=== PATIENT | male | born 1990 | race African-American/Black ===

== ENCOUNTER 2017-09-27 08:16 | Emergency (ER) | payer MEDICAID ==
[~2017-09-27] VITALS: Ht 160 cm; Wt 99.8 kg
[2017-09-27] MEDS ORDERED: ADVAIR 100-501 EACH INH (08:28)
[2017-09-27] MEDS ORDERED: VENTOLIN HFA18 GM INH ×2 (08:28→09:11)
[2017-09-27] MEDS ORDERED: SINGULAIR4 MG PO (08:28)
[2017-09-27] MEDS ORDERED: METHYLPREDNISOLO4 M1 PO (09:11)
== END 2017-09-27 09:24 | disposition home or self-care (01) ==
LOC: ED 08:16
DX: J45.909 Unspecified asthma, uncomplicated (principal); Z91.013 Allergy to seafood; Z79.899 Other long term (current) drug therapy
CPT/HCPCS: 71045; 80048; 85025; 94640; 96374; 96375; 99283; J2060; J2930

== ENCOUNTER 2017-10-14 16:49 | Emergency (ER) | payer MEDICAID ==
[~2017-10-14] VITALS: Ht 160 cm; Wt 99.8 kg
[~2017-10-14 16:49] MED LIST: ADVAIR 100-501 EACH INH; METHYLPREDNISOLO4 M1 PO; SINGULAIR4 MG PO; VENTOLIN HFA18 GM INH
== END 2017-10-14 19:49 | disposition home or self-care (01) ==
LOC: ED 16:49
DX: J45.901 Unspecified asthma with (acute) exacerbation (principal); F17.200 Nicotine dependence, unspecified, uncomplicated; Z91.013 Allergy to seafood; Z79.899 Other long term (current) drug therapy
CPT/HCPCS: 94640; 99282